=== PATIENT | female | born 1965 | race Caucasian/White ===

== ENCOUNTER 2024-10-21 00:55 | Emergency (ER) | payer BC ==
[~2024-10-21] VITALS: Ht 162.6 cm; Wt 79.4 kg
[2024-10-21] MEDS ORDERED: HYDR25TA4 PO (01:19)
[2024-10-21] MEDS ORDERED: NORT25CA PO (01:19)
[2024-10-21] MEDS ORDERED: SEMA1PEN SQ (01:19)
[2024-10-21] MEDS ORDERED: METO-356 PO (01:19)
[2024-10-21] MEDS ORDERED: ADAL40PE SQ (01:19)
[2024-10-21] MEDS ORDERED: PREG300C PO (01:19)
[2024-10-21] MEDS ORDERED: CEVI30CA PO (01:19)
[2024-10-21] MEDS ORDERED: AMLO-212 PO (01:19)
[2024-10-21] MEDS ORDERED: FLUT10.62 IH (01:19)
[2024-10-21] MEDS ORDERED: METF-440 PO (01:19)
[2024-10-21 01:36] VITALS: BP 148/81; TEMP 97.8; O2SAT 98
== END 2024-10-21 01:38 | disposition home or self-care (01) ==
LOC: ER 01:09
DX: M25.562 Pain in left knee (principal); M79.642 Pain in left hand; Z79.51 Long term (current) use of inhaled steroids; Z79.84 Long term (current) use of oral hypoglycemic drugs; Z79.899 Other long term (current) drug therapy; Z96.653 Presence of artificial knee joint, bilateral; W18.39XA Other fall on same level, initial encounter; Y93.89 Activity, other specified; Y92.89 Other specified places as the place of occurrence of the external cause; Y99.8 Other external cause status
CPT/HCPCS: 73130; A4606; A4663